=== PATIENT | male | born 1990 | race Caucasian/White ===

== ENCOUNTER → 2021-06-04 14:59 | Outpatient (BNVA) | payer OTHER, SELFPAY | PROVIDERS: PCP Internal Medicine; Visit Provider Psychiatry & Neurology Neurology | DX: G43.909 Migraine, unspecified, not intractable, without status migrainosus (principal); G47.00 Insomnia, unspecified; G89.29 Other chronic pain | CPT/HCPCS: 99212 ==

== ENCOUNTER → 2021-09-26 14:20 | Outpatient (BNVA) | payer OTHER, SELFPAY | PROVIDERS: PCP Internal Medicine; Visit Provider Nurse Practitioner Family | DX: G43.909 Migraine, unspecified, not intractable, without status migrainosus (principal); R51.9 Headache, unspecified; G47.00 Insomnia, unspecified; G89.29 Other chronic pain | CPT/HCPCS: 99212 ==

== ENCOUNTER → 2022-01-28 14:22 | Outpatient (BNVA) | payer OTHER, SELFPAY | PROVIDERS: PCP Internal Medicine; Visit Provider Nurse Practitioner Family | DX: G43.909 Migraine, unspecified, not intractable, without status migrainosus (principal); G47.00 Insomnia, unspecified; Q24.6 Congenital heart block; Z79.899 Other long term (current) drug therapy | CPT/HCPCS: 99212 ==

== ENCOUNTER → 2022-07-09 11:19 | Outpatient (BNVA) | payer OTHER, SELFPAY | PROVIDERS: PCP Internal Medicine; Visit Provider Nurse Practitioner Family | DX: G43.909 Migraine, unspecified, not intractable, without status migrainosus (principal); Q24.6 Congenital heart block; Z95.0 Presence of cardiac pacemaker | CPT/HCPCS: 99212 ==

== ENCOUNTER → 2022-08-14 14:37 | Outpatient (BNVA) | payer OTHER, SELFPAY | PROVIDERS: PCP Internal Medicine; Visit Provider Nurse Practitioner Family | DX: G43.909 Migraine, unspecified, not intractable, without status migrainosus (principal); R51.9 Headache, unspecified; G89.29 Other chronic pain | CPT/HCPCS: 99211 ==

== ENCOUNTER → 2022-10-12 10:58 | Outpatient (BNVA) | payer OTHER, SELFPAY | PROVIDERS: PCP Internal Medicine; Visit Provider Nurse Practitioner Family | DX: G43.909 Migraine, unspecified, not intractable, without status migrainosus (principal); R51.9 Headache, unspecified; M62.838 Other muscle spasm; G89.29 Other chronic pain | CPT/HCPCS: 99212 ==

== ENCOUNTER 2023-02-19 11:05 | Outpatient (AMB) | payer OTHER, SELFPAY ==
--- NOTE | 2023-02-19 11:11 | MHC.OFFVIS ---
Intake Vital Signs 02/19/23 11:33 Height 5 ft 3 in Weight 129 lb 9 oz BMI 22.9 BP 96/72 Blood Pressure Location Rt brachial Position Sitting Pulse 81 Pulse Source Pulse Oximeter Pulse Oximetry (%) 98 Oxygen Delivery Method Room Air Intake Visit Reasons: 4m Follow up Migraine-Confirmed Intake Note: Patient presents for 4 month follow up migraine. patient states no issues or concerns today. Allergies house dust Allergy (Unknown, Verified 02/19/23 11:34) Unknown pollen extracts Allergy (Unknown, Verified 02/19/23 11:34) Unknown cats Allergy (Uncoded 02/19/23 11:34) Sneezing dogs Allergy (Uncoded 02/19/23 11:34) HIVES Medication List - Last Reconciled 02/19/23 by CAROLINA Peñaloza albuterol sulfate 90 mcg/actuation (Ventolin HFA) 2 puffs PO QID PRN atorvastatin 40 mg PO DAILY PRN baclofen 5 - 10 mg (1 - 2 x 5 mg) PO BEDTIME PRN 30 days blood sugar diagnostic (FreeStyle Lite Strips) As directed blood-glucose meter (FreeStyle Lite Meter kit) As directed clindamycin phosphate 1% topical BEDTIME doxycycline hyclate 100 mg PO DAILY erenumab-aooe (Aimovig Autoinjector) 140 mg subcut ONCE 28 days flash glucose scanning reader (FreeStyle Reta 2 [place]) As directed flash glucose sensor (FreeStyle Reta 2 Sensor kit) As directed gabapentin 600 mg (2 x 300 mg) PO BEDTIME hydroxyzine HCl 25 mg PO BEDTIME insulin aspart U-100 (Novolog FlexPen U-100 Insulin aspart) 10 units subcut TID insulin glargine (Lantus Solostar U-100 Insulin) 10 units subcut QPM ketoconazole 2% 1 appl topical BID lisinopril 2.5 mg PO DAILY magnesium oxide 400 mg PO BEDTIME melatonin 3 mg PO BEDTIME PRN pen needle, diabetic (BD [place] 2nd Gen Pen Needle) As directed riboflavin (vitamin B2) 400 mg PO DAILY rimegepant (Nurtec ODT) 75 mg PO Q OTHER DAY PRN 32 days sertraline 50 mg PO DAILY topiramate 1 tab bid x's 2 weeks, then 2 tabs bid orally bedtime; 30 days HPI HPI Comments History of Present Illness Details 32-yr-old male presents for f/u visit. Pt denies any significant interval medical changes. Pt reports he has been having a daily headache, most days not as severe as prior to starting Aimovig. Nurtec was unhelpful. He is not sleeping as well. He works second shift. May drink coffee into the later evening. Has difficulty falling asleep. [facility] Medical History (Updated 02/21/23 @ 19:34 by CAROLINA Peñaloza) Difficulty controlling anger Asthma Anxiety Learning disability Congenital heart block Cardiac defibrillator in place Heart block Pacemaker Hearing loss Diabetes 1.5, managed as type 1 Surgical History Hx of appendectomy History of permanent cardiac pacemaker placement H/O heart surgery Family History Father HTN (hypertension) Heart disease Stroke Mother HTN (hypertension) Diabetes mellitus Social History Household Members: Family Household Members Other:: Mom Alcohol intake: current Alcohol intake frequency: holidays/special occasions only Patient Tobacco Use Status: Never used Tobacco Review of Systems Const All systems reviewed & are unremarkable except as noted in HPI and below Physical Exam Vital Signs: Last Vital Signs Pulse 81 02/19/23 11:33 BP 96/72 02/19/23 11:33 Pulse Ox 98 02/19/23 11:33 Oxygen Delivery Method Room Air 02/19/23 11:33 BMI result Body Mass Index 22.9 Const General: cooperative and no acute distress Orientation/consciousness: patient oriented x3 HEENT Head: Yes normocephalic Resp Effort & Inspection: normal respiratory effort and able to speak in complete sentences Neuro General: patient oriented x3, gait normal and CN's II-XI intact bilaterally Cognition (Neuro): normal cognition Motor exam (neuro): 5/5 motor strength present throughout Psych Appearance: grossly normal Mental Status: mental status grossly normal Speech and movement: Normal speech and movement present Affect: normal affect Attitude: cooperative Thought process: Normal thought process present Thought content: Normal thought content present Assessment & Plan Assessment & Plan (1) Migraine: Code(s): G43.909 - Migraine, unspecified, not intractable, without status migrainosus (2) Sleep difficulties: Code(s): G47.9 - Sleep disorder, unspecified (3) Insomnia: Code(s): G47.00 - Insomnia, unspecified Plan Discussed strategies to optimize sleep- avoid coffee after 5-6pm. Continue Baclofen 5-10mg qhs. Continue Aimovig 140mg sc q 28 days, as pt has had good clinical response from use. Continue Topiramate 25mg, 2 tabs bid- for headache prevention.. Continue Gabapentin 600mg qhs- for sleep and headaches. Continue Riboflavin and Magnesium. May use Excedrin, Ibuprofen, Tylenol sparingly prn. Stop Rimegepant ODT 75mg- was ineffective. Trial Ubrelvy prn. Acute migraine contraindications: triptans d/t h/o congenital CV dz. Migraine prevention contraindications: TCAs- d/t congenital heart block. BBs- d/t dx of asthma and diabetes. f/u in 6 months or sooner prn. Medications: New ubrogepant (Ubrelvy) take at onset of migraine, may repeat in 2hrs (may take w/ Ibuprofen) 50 - 100 mg (0.5 - 1 x 100 mg) PO ONCE 30 days PRN 16 tabs 3RF migraine headache Changed From topiramate 1 tab bid x's 2 weeks, then 2 tabs bid orally bedtime; 30 days 120 tabs 3RF To topiramate 50 mg (2 x 25 mg) PO BID 30 days 120 tabs 6RF From magnesium oxide 400 mg PO BEDTIME To magnesium oxide 400 mg PO BEDTIME 30 days 30 tabs 6RF From riboflavin (vitamin B2) 400 mg PO DAILY To riboflavin (vitamin B2) 400 mg PO DAILY 30 days 30 tabs 6RF Refilled erenumab-aooe (Aimovig Autoinjector) 140 mg subcut ONCE 28 days 28 mL 6RF gabapentin 600 mg (2 x 300 mg) PO BEDTIME 60 caps 6RF Discontinued rimegepant (Nurtec ODT) Discontinued Reason: Doctor's Order 75 mg PO Q OTHER DAY 32 days PRN 16 tabs 6RF migraine headache G43.909 - Migraine, unspecified, not intractable, without status migrainosus Coding Level of Care Code Est Pt Level 4 (39049) Diagnoses Migraine G43.909 Sleep difficulties G47.9 Insomnia G47.00
[2023-02-19 11:33] VITALS: BP 96/72; PULSE 81; O2SAT 98; BMI 22.9
== END 2023-02-19 12:08 | disposition home or self-care (01) ==
PROVIDERS: PCP Internal Medicine; Visit Provider Nurse Practitioner Family
DX: G43.909 Migraine, unspecified, not intractable, without status migrainosus (principal); G47.9 Sleep disorder, unspecified; G47.00 Insomnia, unspecified
CPT/HCPCS: 99214

== ENCOUNTER → 2023-02-19 11:05 | Outpatient (BNVA) | payer OTHER, SELFPAY | PROVIDERS: PCP Internal Medicine; Visit Provider Nurse Practitioner Family | DX: G43.909 Migraine, unspecified, not intractable, without status migrainosus (principal); G47.9 Sleep disorder, unspecified; G47.00 Insomnia, unspecified | CPT/HCPCS: 99212 ==

== ENCOUNTER 2023-08-20 11:05 | Outpatient (AMB) | payer OTHER, SELFPAY ==
--- NOTE | 2023-08-20 11:30 | A.OFFVIS_ITS ---
Vital Signs 08/20/23 11:35 Height 5 ft 3 in Weight 137 lb BMI 24.3 BP 104/70 Blood Pressure Location Lt brachial Position Sitting Pulse 104 H Pulse Source Pulse Oximeter Pulse Oximetry (%) 97 Oxygen Delivery Method Room Air Intake Visit Reasons: 6 mnts f/u for migraines-CONF Intake Note: Patient presents for 6 months F/U. Allergies house dust Allergy (Unknown, Verified 08/20/23 11:34) Unknown pollen extracts Allergy (Unknown, Verified 08/20/23 11:34) Unknown cats Allergy (Uncoded 02/19/23 11:34) Sneezing dogs Allergy (Uncoded 02/19/23 11:34) HIVES HPI Comments Details: 33-yr-old male presents for f/u visit. Pt denies any significant interval medical changes. Pt reports he is having 3-4 headache days per week, on a bad week, he may have 5 attacks. Tends to wait to take his as needed meds at night d/t risk for drowsiness. He has not taken the Aimovig in a few months, as he was not sure if he was able to continue it as the pharmacy did not refill it. He notes that he does have less headaches when he is using it monthly. He did not receive the Ubrelvy yet. He has reduced soda intake- especially none at 8pm. He has increased his milk intake, maybe juice or water. He feels this has helped his BLE neuropathy s/s- so now is sleeping better. [facility] Medical History (Updated 02/21/23 @ 19:34 by CAROLINA Peñaloza) Difficulty controlling anger Asthma Anxiety Learning disability Congenital heart block Cardiac defibrillator in place Heart block Pacemaker Hearing loss Diabetes 1.5, managed as type 1 Surgical History Hx of appendectomy History of permanent cardiac pacemaker placement H/O heart surgery Family History Father HTN (hypertension) Heart disease Stroke Mother HTN (hypertension) Diabetes mellitus Social History Household Members: Family Household Members Other:: Mom Alcohol intake: current Alcohol intake frequency: holidays/special occasions only Patient Tobacco Use Status: Never used Tobacco Physical Exam Vital Signs: Last Vital Signs Pulse 104 H 08/20/23 11:35 BP 104/70 08/20/23 11:35 Pulse Ox 97 08/20/23 11:35 Oxygen Delivery Method Room Air 08/20/23 11:35 BMI result Body Mass Index 24.3 Const General: cooperative and no acute distress Orientation/consciousness: patient oriented x3 Resp Effort & Inspection: normal respiratory effort and able to speak in complete sentences Neuro General: patient oriented x3 Cranial nerves: Yes CN's II-XII intact bilaterally Cognition (Neuro): normal cognition Psych Appearance: grossly normal Mental Status: mental status grossly normal Speech and movement: Normal speech and movement present Affect: normal affect Attitude: cooperative Assessment & Plan Assessment & Plan (1) Migraine: Code(s): G43.909 - Migraine, unspecified, not intractable, without status migrainosus Category: Medical (2) Sleep difficulties: Code(s): G47.9 - Sleep disorder, unspecified Category: Medical Plan Continue strategies to optimize sleep- avoid coffee after 5-6pm. ? Continue Baclofen 5-10mg qhs. Resume Aimovig 140mg sc q 28 days, as pt has had good clinical response from use. Continue Topiramate 25mg, 2 tabs bid- for headache prevention.. Continue Gabapentin 600mg qhs- for sleep and headaches. Continue Riboflavin and Magnesium. May use Excedrin, Ibuprofen, Tylenol sparingly prn. Trial Ubrelvy prn. Previous acute tx trials: Rimegepant ODT 75mg- was ineffective. Acute migraine contraindications: triptans d/t h/o congenital CV dz. Migraine prevention contraindications: TCAs- d/t congenital heart block. BBs- d/t dx of asthma and diabetes. ? f/u in 6 months or sooner prn. Medications: Refilled topiramate 50 mg (2 x 25 mg) PO BID 120 tabs 6RF 30 days riboflavin (vitamin B2) 400 mg PO DAILY 30 tabs 6RF 30 days magnesium oxide 400 mg PO BEDTIME 30 tabs 6RF 30 days ubrogepant (Ubrelvy) take at onset of migraine, may repeat in 2hrs (may take w/ Ibuprofen) 50 - 100 mg (0.5 - 1 x 100 mg) PO ONCE PRN 16 tabs 6RF migraine headache 30 days gabapentin 600 mg (2 x 300 mg) PO BEDTIME 60 caps 6RF
[2023-08-20 11:35] VITALS: BP 104/70; PULSE 104; O2SAT 97; BMI 24.3
== END 2023-08-20 12:17 | disposition home or self-care (01) ==
PROVIDERS: PCP Internal Medicine; Visit Provider Nurse Practitioner Family
DX: G43.909 Migraine, unspecified, not intractable, without status migrainosus (principal); G47.9 Sleep disorder, unspecified
CPT/HCPCS: 99214

== ENCOUNTER → 2023-08-20 11:05 | Outpatient (BNVA) | payer OTHER, SELFPAY | PROVIDERS: PCP Internal Medicine; Visit Provider Nurse Practitioner Family | DX: G43.909 Migraine, unspecified, not intractable, without status migrainosus (principal); G47.9 Sleep disorder, unspecified | CPT/HCPCS: 99212 ==

== ENCOUNTER 2024-05-26 14:48 | Outpatient (AMB) | payer OTHER, SELFPAY ==
--- NOTE | 2024-05-26 15:05 | A.OFFVIS_ITS ---
Vital Signs 05/26/24 15:06 Height 5 ft 3 in Weight 138 lb 2 oz BMI 24.5 BP 120/80 Blood Pressure Location Rt brachial Position Sitting Pulse 95 Pulse Source Pulse Oximeter Pulse Oximetry (%) 98 Oxygen Delivery Method Room Air Intake Visit Reasons: follow up migraines Picture Engraver Required: No Accompanied by: Self / Same As Patient Allergies house dust Allergy (Unknown, Verified 05/26/24 15:11) Unknown pollen extracts Allergy (Unknown, Verified 05/26/24 15:11) Unknown cats Allergy (Uncoded 10/29/23 11:58) Sneezing dogs Allergy (Uncoded 10/29/23 11:58) HIVES Medication List - Last Reconciled 05/26/24 by CAROLINA Peñaloza albuterol sulfate 90 mcg/actuation (Ventolin HFA) 2 puffs PO QID PRN atorvastatin 40 mg PO DAILY PRN baclofen 5 - 10 mg (1 - 2 x 5 mg) PO BEDTIME PRN 30 days blood sugar diagnostic (FreeStyle Lite Strips) As directed blood-glucose meter (FreeStyle Lite Meter kit) As directed clindamycin phosphate 1% topical BEDTIME doxycycline hyclate 100 mg PO DAILY erenumab-aooe (Aimovig Autoinjector) 140 mg subcut ONCE 28 days flash glucose scanning reader (WebThriftStoreStyle Reta 2 [place]) As directed flash glucose sensor (FreeStyle Reta 2 Sensor kit) As directed gabapentin 600 mg (2 x 300 mg) PO BEDTIME hydroxyzine HCl 25 mg PO BEDTIME insulin aspart U-100 (Novolog FlexPen U-100 Insulin aspart) 10 units subcut TID insulin glargine (Lantus Solostar U-100 Insulin) 10 units subcut QPM ketoconazole 2% 1 appl topical BID lisinopril 2.5 mg PO DAILY magnesium oxide 400 mg PO BEDTIME 30 days melatonin 3 mg PO BEDTIME PRN pen needle, diabetic (BD [place] 2nd Gen Pen Needle) As directed riboflavin (vitamin B2) 400 mg PO DAILY 30 days sertraline 50 mg PO DAILY topiramate 50 mg (2 x 25 mg) PO BID 30 days ubrogepant (Ubrelvy) 50 - 100 mg (0.5 - 1 x 100 mg) PO ONCE PRN 30 days Do you need a note to return to daycare/school/sports/work: No HPI Comments Details: 34-yr-old male presents for f/u visit of migraine. Pt denies any significant interval medical changes. Though he recently recovered from a month long URI/generally feeling down. Overall he is feeling better, however, he is having difficulty initiating and maintaining sleep. He uses hydroxyzine, but it does not help him sleep. He has just ordered new pillows, and is hoping this will help. Melatonin in the evening has not helped. He has been told he snores, can easily fall asleep. His mother was recently diagnosed with sleep apnea. Pt reports it has been a while since he had a bad headache, but today he has a headache today. States overall he is not having as many migraines, maybe 3 times days week or less. He has not taken the Aimovig in a while. He states his PCP advise him to stop the gabapentin. He has not started Ubrelvy yet. Pt has been trying to eat better overall- more salads. He is using an electric foot massager, which has been reducing his neuropathy s/s. [facility] Medical History Difficulty controlling anger Asthma Anxiety Learning disability Congenital heart block Cardiac defibrillator in place Heart block Pacemaker Hearing loss Diabetes 1.5, managed as type 1 Surgical History Hx of appendectomy History of permanent cardiac pacemaker placement H/O heart surgery Family History Father HTN (hypertension) Heart disease Stroke Mother HTN (hypertension) Diabetes mellitus Social History Household Members: Family Household Members Other:: Mom Alcohol intake: current Alcohol intake frequency: holidays/special occasions only Patient Tobacco Use Status: Never used Tobacco Physical Exam Vital Signs: Last Vital Signs Pulse 95 05/26/24 15:06 BP 120/80 05/26/24 15:06 Pulse Ox 98 05/26/24 15:06 Oxygen Delivery Method Room Air 05/26/24 15:06 BMI result Body Mass Index 24.5 Const General: cooperative and no acute distress Orientation/consciousness: patient oriented x3 Resp Effort & Inspection: normal respiratory effort and able to speak in complete sentences Neuro General: patient oriented x3 Cranial nerves: Yes CN's II-XII intact bilaterally Cognition (Neuro): normal cognition Psych Appearance: grossly normal Mental Status: mental status grossly normal Speech and movement: Normal speech and movement present Affect: normal affect Attitude: cooperative Assessment & Plan Assessment & Plan (1) Migraine: Code(s): G43.909 - Migraine, unspecified, not intractable, without status migrainosus Category: Medical (2) Sleep difficulties: Code(s): G47.9 - Sleep disorder, unspecified Category: Medical (3) Snoring: Code(s): R06.83 - Snoring Category: Medical (4) Excessive daytime sleepiness: Code(s): G47.19 - Other hypersomnia Category: Medical (5) Sleep difficulties: Code(s): G47.9 - Sleep disorder, unspecified Category: Medical Plan For sleep difficulties: Patient advised to undergo HST to assess for sleep apnea. Reviewed general sleep education principles, including simple strategies to optimize sleep hygiene and sleep quality. List of sleep resources shared w/pt, such as the book Say Jocelyn to Insomnia by Dr Massimo Mahajan. For migraine prevention: Patient has stopped gabapentin. Discontinue Aimovig 140mg sc q 28 days- patient states he does not need this any longer. Continue riboflavin 400 mg q.a.m. Continue magnesium 400 mg q.h.s. Continue Baclofen 5-10mg qhs. Continue Topiramate 25mg, 2 tabs bid- for headache prevention. Migraine prevention contraindications: TCAs- d/t congenital heart block. BBs- d/t dx of asthma and diabetes. For acute migraine treatment: May use Excedrin, Ibuprofen, Tylenol sparingly prn. Trial Ubrogepant (Ubrelvy) 100mg tab, 1/2 - 1 tab (50-100mg) at onset of headach e, may repeat in 2 hours. Max of 2 tabs (200mg) per 24 hours. May adjunct with OTC Tylenol 650mg q 4 hours, Ibuprofen 600mg q 6 hours, or Naproxen 440mg q 12 hrs prn. Potential adverse effects, include but are not limited to fatigue, nausea, dry mouth, constipation Previous acute tx trials: Rimegepant ODT 75mg- ineffective. Acute migraine contraindications: All triptans and DHE d/t h/o congenital CV dz. Will follow-up upon review of above and patient to follow-up in clinic in 6 months or sooner prn. Orders: Orders RT home sleep study Today G47.19 - Other hypersomnia, G47.9 - Sleep disorder, unspecified, R06.83 - Snoring Medications: Changed From ubrogepant (Ubrelvy) take at onset of migraine, may repeat in 2hrs (may take w/ Ibuprofen) 50 - 100 mg (0.5 - 1 x 100 mg) PO ONCE 30 days PRN 16 tabs 6RF migraine headache To ubrogepant (Ubrelvy) take at onset of migraine, may repeat in 2hrs 50 - 100 mg (0.5 - 1 x 100 mg) PO ONCE 30 days PRN 16 tabs 6RF migraine headache MDD 2 tabs Refilled magnesium oxide 400 mg PO BEDTIME 30 days 30 tabs 6RF riboflavin (vitamin B2) 400 mg PO DAILY 30 days 30 tabs 6RF Discontinued gabapentin Discontinued Reason: Doctor's Order 600 mg (2 x 300 mg) PO BEDTIME 60 caps 6RF Coding Level of Care Code Est Pt Level 4 (67512) Diagnoses Migraine G43.909 Sleep difficulties G47.9 Snoring R06.83 Excessive daytime sleepiness G47.19 [place] Sleepiness Scale Questions Sitting and reading: moderate chance of dozing Watching TV: moderate chance of dozing Sitting inactive in a theater, movie etc.: would never doze As a passenger in a car for an hour without break: moderate chance of dozing Lying down in the afternoon when circumstances permit: moderate chance of dozing Sitting and talking to someone: would never doze Sitting quietly after lunch without alcohol: moderate chance of dozing In a car, while stopped for a few minutes in the traffic: would never doze ESS < 10: normal, ESS > 12: pathologic: 10
[2024-05-26 15:06] VITALS: BP 120/80; PULSE 95; O2SAT 98; BMI 24.5
== END 2024-05-26 15:45 | disposition home or self-care (01) ==
LOC: HO.HSMS 14:48
PROVIDERS: PCP Internal Medicine; Visit Provider Nurse Practitioner Family
DX: G43.909 Migraine, unspecified, not intractable, without status migrainosus (principal); G47.9 Sleep disorder, unspecified; R06.83 Snoring; G47.19 Other hypersomnia
CPT/HCPCS: 99214

== ENCOUNTER → 2024-05-26 14:48 | Outpatient (BNVA) | payer OTHER, SELFPAY | PROVIDERS: PCP Internal Medicine; Visit Provider Nurse Practitioner Family | DX: G43.909 Migraine, unspecified, not intractable, without status migrainosus (principal); G47.9 Sleep disorder, unspecified; G47.19 Other hypersomnia; R06.83 Snoring | CPT/HCPCS: 99212 ==

== ENCOUNTER → 2024-07-13 13:56 | Outpatient (REF) | payer OTHER, SELFPAY ==
--- OUTSIDE RECORDS SUMMARY | 2024-07-13 17:05 | XMS_ITS | Encounter Summary ---
Author Organization [facility] Address [address] [place] [id number] Phone Care Team Providers Care Bond Manager Name Role Phone Lopez Justice MD Primary Care Provider [phone] Encounter Details Date Type Department Care Team (Late st Contact Info) Description 04/27/2011 Documentation [facility] [place] [address] [place] [address] Family Medicine, Physician [address] [phone] Social History Tobacco Use Types Packs/Day Years Used Date Smoking Tobacco: Never Assessed Sex and Gender Information Value Date Recorded Sex Assigned at Not on file Legal Sex Male 4:50 PM EDT Gender Identity Not on file Sexual Orientation Not on file documented as of this encounter Plan of Treatment Not on file documented as of this encounter Visit Diagnoses Not on filedocumented in this encounter Care Teams Bond Manager Relationship Specialty Start Date End Date Lopez Justice MD [address] [place] [address] [place] [address] PCP - General 12/18/16 documented as of this encounter
--- OUTSIDE RECORDS SUMMARY | 2024-07-13 17:05 | XMS_ITS | Encounter Summary ---
Author Organization [facility] Address [address] [place] [address] Phone Care Team Providers Care Food Services Coordinator Name Role Phone Lopez Justice MD Primary Care Provider [phone] Encounter Details Date Type Department Care Team (Late st Contact Info) Description 04/01/2010 Documentation [facility] [place] Family Medicine [address] [place] [address] Family Medicine, Physician [address] [phone] Social History Tobacco Use Types Packs/Day Years [...] on filedocumented in this encounter Care Teams Food Services Coordinator Relationship Specialty Start Date End Date Lopez Justice MD [address] [place] [address] [place] [address] PCP - General 12/18/16 documented as of this encounter
--- OUTSIDE RECORDS SUMMARY | 2024-07-13 17:05 | XMS_ITS | Encounter Summary ---
Author Organization [facility] Address [address] [place] [address] Phone Care Team Providers Care Actuarial Trainee Name Role Phone Lopez Justice MD Primary Care Provider [phone] Encounter Details Date Type Department Care Team (Late st Contact Info) Description 09/07/2013 Documentation [facility] [place] Family Medicine [address] [place] [address] Family Medicine, Physician [address] [phone] Social History Tobacco Use Types Packs/Day Years [...] on filedocumented in this encounter Care Teams Actuarial Trainee Relationship Specialty Start Date End Date Lopez Justice MD [address] [place] [address] [place] [address] PCP - General 12/18/16 documented as of this encounter
--- OUTSIDE RECORDS SUMMARY | 2024-07-13 17:05 | XMS_ITS | Encounter Summary ---
Author Organization [facility] Address [address] [place] [address] Phone Care Team Providers Care Help Desk Representative Name Role Phone Lopez Justice MD Primary Care Provider [phone] Encounter Details Date Type Department Care Team (Late st Contact Info) Description 12/24/2016 Conversion Encounter [facility] [place] [address] [place] [address] Social History Tobacco Use Types Packs/Day Years Used Date Smoking Tobacco: Never Comments:Never smoker Sex and Gender Information Value Date Recorded Sex Assigned at Not on file Legal Sex Male 4:50 PM EDT Gender Identity Not on file Sexual Orientation Not on file documented as of this encounter Plan of Treatment Not on file documented as of this encounter Visit Diagnoses Not on filedocumented in this encounter Care Teams Help Desk Representative Relationship Specialty Start Date End Date Lopez Justice MD [address] [place] [id number] PCP - General 12/18/16 documented as of this encounter
--- OUTSIDE RECORDS SUMMARY | 2024-07-13 17:05 | XMS_ITS | Clinical Summary ---
Author Organization [facility] Address [address] [address] Care Team Providers Care Ship Yard Electrical Person Name Role Phone South Saucedo MD Primary Care Provider [phone] Social History Tobacco Use Types Packs/Day Years Used Date Smoking Tobacco: Never Assessed Sex and Gender Information Value Date Recorded Sex Assigned at Not on file Legal Sex Male 11:23 AM EDT Gender Identity Not on file Sexual Orientation Not on file Plan of Treatment Health Maintenance Due Date Last Done Comments Pneumococcal Vaccine: Pediat rics (0 to 5 Years) and At-Risk Patients (6 to 64 Years) (2 of 2 - PCV) 08/22/2022 08/22/2021, 09/20/2014 Diabetes: Hemoglobin A1C 09/22/2022 Diabetes: Ophthalmology Exam 09/22/2022, 01/14/2017, 01/14/2016, Additional history exists Diabetes: Pedal Pulse Checked 09/22/2022 Diabetes: Sensory Foot Exam 09/22/2022 Diabetes: Visual Foot Exam 09/22/2022 Influenza Vaccine (#1) 2024 0, 02/16/2017, 06/16/2013, Additional history exists Hepatitis B Vaccine Completed 1992, 1992, 1992 Insurance [facility] ([id number]) [place]QUEZ [id number] Care Teams Ship Yard Electrical Person Relationship Specialty Start Date End Date South Saucedo MD [facility] [address] [place] [address] PCP - General Internal Medicine 09/22/22
--- OUTSIDE RECORDS SUMMARY | 2024-07-13 17:05 | XMS_ITS | Clinical Summary ---
Author Organization [facility] Address [address] [place] [address] Phone Care Team Providers Care Ceo And Founder Name Role Phone Lopez Justice MD Primary Care Provider [phone] Immunizations Immunization Administration Dates Next Due DTP 04/20/1997, 4,1992,08/30,1992 H1N1 04/02/2009 HPV, Quadrivalent 06/16/2013 Hep A, ped/adol 06/16/2013 Hep B, ped/adol 1992,1992,1992 Hib (PRP-T) 08/26/1993, 3,1992,06/05 Influenza Split 01/29/2011,05/13/2010 Influenza, injectable, quadr ivalent, preservative free 06/16/2013 Influenza, injectable, trivalent 008,04/05/2007,03/23/2005,04/14,02/25/1999,04/09/1998 MMR 04/20/1997,08/26/1993 Meningococcal Conj (Menactra) MCV4P 04/05/2007 OPV 04/20/1997, 4,1992,06/05 Tdap 05/13/2010,04/29/2005 Family History Relation Name Status Comments Father Alive Father: *Sudden /OK under 55, Maternal Grandmother Materna l grandmother: Hyperlipidemia Mother Mother: Asthma, Hyperlipidemia, Diabetes mellitus Other Family history of Cancer, Family history of Migraines, Family history of Hyperlipidemia, No family history of Obesity, Family history of Asthma Social History Tobacco Use Types Packs/Day Years Used Date Smoking Tobacco: Never Comments:Never smoker Sex and Gender Information Value Date Recorded Sex Assigned at Not on file Legal Sex Male 4:50 PM EDT Gender Identity Not on file Sexual Orientation Not on file Last Filed Vital Signs Vital Sign Reading Time Taken Comments Blood Pressure 116/80 07/25/2013 12:00 AM EDT Pulse - - Temperature 36.6 ??C (97.9 ??F) 07/25/2013 12:00 AM E DT Respiratory Rate - - Oxygen Saturation - - Inhaled Oxygen Concentration - - Weight 54.2 kg (119 lb 8 oz) 07/25/2013 12:00 AM EDT Height 160 cm (5' 3 ) 06/16/2013 12:00 AM EST Body Mass Index 21.17 06/16/2013 12:00 AM EST Plan of Treatment Health Maintenance Due Date Last Done Comments Varicella Vaccines (1 of 2 - 13+ 2-dose series) 2005 HPV Vaccines (2 - Male 3-dose series) 07/14/2013 06/16/2013 DTaP,Tdap,and Td Vaccines (8 - Td or Tdap) 05/13/2020 05/13/2010, 04/29/2005, 04/20/1997, Additional history exists Influenza Vaccines (#1) 2023 06/16/19 14, 01/29/2011, 05/13/2010, Additional history exists COVID-19 Vaccine ( season) 2024 Hepatitis B Vaccines Completed 1992, 1992, 1992 HIB Vaccines Completed 08/26/1993, 10/09, 1992, Additional history exists IPV Vaccines Completed 04/20/1997, 03/10, 1992, Additional history exists MMR Vaccines Completed 04/20/1997, 08/26/1993 Meningococcal Vaccine Aged Out 04/05/2007 No rachel danyelle eligible based on patient's age to complete this topic Hepatitis A Vaccines Aged Out 06/16/2013 No long er eligible based on patient's age to complete this topic Men B Vaccine Aged Out No longer elig ible based on patient's age to complete this topic Pneumococcal Vaccine Aged Out No long er eligible based on patient's age to complete this topic Care Teams Ceo And Founder Relationship Specialty Start Date End Date Lopez Justice MD [address] [place] [address] MONA Neri [id number] PCP - General 12/18/16
== END ==
LOC: HO.SL 13:56
PROVIDERS: Visit Provider Nurse Practitioner Family
DX: R06.83 Snoring (principal); G47.19 Other hypersomnia; G47.9 Sleep disorder, unspecified
CPT/HCPCS: 95806

== ENCOUNTER → 2024-07-13 14:10 | Outpatient (BNV) | payer OTHER, SELFPAY | PROVIDERS: Visit Provider Psychiatry & Neurology Neurology | DX: R06.83 Snoring (principal); G47.9 Sleep disorder, unspecified | CPT/HCPCS: 95806 ==

== ENCOUNTER 2024-11-24 08:40 | Outpatient (AMB) | payer OTHER, SELFPAY ==
--- OUTSIDE RECORDS SUMMARY | 2024-11-24 08:43 | XMS_ITS | Encounter Summary ---
Author Organization [facility] Address [address] [place] [address] Phone Care Team Providers Care Shaker Out Name Role Phone Lopez Justice MD Primary Care Provider Alex rivera Encounter Details Date Type Department Care Team (Late st Contact Info) Description 04/27/2011 Documentation EM Family Medicine [address] [place] [address] Family Medicine, Physician [address] [place] [address] Social History Tobacco Use Types Packs/Day Years [...] on filedocumented in this encounter Care Teams Shaker Out Relationship Specialty Start Date End Date Lopez Justice MD PCP - General 12/18/16 documented as of this encounter
--- OUTSIDE RECORDS SUMMARY | 2024-11-24 08:43 | XMS_ITS | Clinical Summary ---
Author Organization [facility] Facility Address [address] [place] [address] Care Team Providers Care Wire Dropper Name Role Phone South Saucedo MD Primary Care Provider [phone] Social History Tobacco Use Types Packs/Day Years Used Date Smoking Tobacco: Never Assessed Sex and Gender Information Value Date Recorded Sex Assigned at Not on file Legal Sex Male 11:23 AM EDT Gender Identity Not on file Sexual Orientation Not on file Plan of Treatment Health Maintenance Due Date Last Done Comments Pneumococcal Vaccine: Peds ( 0 to 5 Years) and At-Risk Patients (6 to 49 Years) (2 of 2 - PCV) 08/22/2022 08/22/2021, 09/20/2014 Diabetes: Hemoglobin A1C 09/22/2022 Diabetes: Ophthalmology Exam 09/22/2022, 01/14/2017, 01/14/2016, Additional history exists Diabetes: Pedal Pulse Checked 09/22/2022 Diabetes: Sensory Foot Exam 09/22/2022 Diabetes: Visual Foot Exam 09/22/2022 Influenza Vaccine (#1) 2025 0, 02/16/2017, 06/16/2013, Additional history exists Hepatitis B Vaccine Completed 1992, 1992, 1992 Insurance [facility] ([id number]) EDELMIRA VELASQUEZ [id number] Care Teams Wire Dropper Relationship Specialty Start Date End Date South Saucedo MD [employer] [address] [place] [address] PCP - General Internal Medicine 09/22/22
[2024-11-24 08:49] VITALS: BP 140/90; PULSE 83; O2SAT 98; BMI 23.9
--- NOTE | 2024-11-24 08:49 | A.OFFVIS_ITS ---
Vital Signs 11/24/24 08:49 Height 5 ft 3 in Weight 135 lb BMI 23.9 BP 140/90 H Blood Pressure Location Rt brachial Position Sitting Pulse 83 Pulse Source Pulse Oximeter Pulse Oximetry (%) 98 Oxygen Delivery Method Room Air Intake Visit Reasons: 6 mo follow up [employer] Required: No Accompanied by: Self / Same As Patient Allergies house dust Allergy (Unknown, Verified 11/24/24 08:49) Unknown pollen extracts Allergy (Unknown, Verified 11/24/24 08:49) Unknown cats Allergy (Uncoded 10/29/23 11:58) Sneezing dogs Allergy (Uncoded 10/29/23 11:58) HIVES Medication List - Last Reconciled 11/24/24 by CAROLINA Peñaloza albuterol sulfate 90 mcg/actuation (Ventolin HFA) 2 puffs PO QID PRN atorvastatin 40 mg PO DAILY PRN baclofen 5 - 10 mg (1 - 2 x 5 mg) PO BEDTIME PRN 30 days blood sugar diagnostic (FreeStyle Lite Strips) As directed blood-glucose meter (FreeStyle Lite Meter kit) As directed clindamycin phosphate 1% topical BEDTIME doxycycline hyclate 100 mg PO DAILY erenumab-aooe (Aimovig Autoinjector) 140 mg subcut ONCE 28 days flash glucose scanning reader (GemShareStyle Reta 2 [place]) As directed flash glucose sensor (FreeStyle Reta 2 Sensor kit) As directed hydroxyzine HCl 25 mg PO BEDTIME insulin aspart U-100 (Novolog FlexPen U-100 Insulin aspart) 10 units subcut TID ketoconazole 2% 1 appl topical BID lisinopril 2.5 mg PO DAILY magnesium oxide 400 mg PO BEDTIME 30 days melatonin 3 mg PO BEDTIME PRN pen needle, diabetic (BD [place] 2nd Gen Pen Needle) As directed riboflavin (vitamin B2) 400 mg PO DAILY 30 days sertraline 50 mg PO DAILY topiramate 50 mg (2 x 25 mg) PO BID 30 days ubrogepant (Ubrelvy) 50 - 100 mg (0.5 - 1 x 100 mg) PO ONCE PRN 30 days MDD 2 tabs HPI Comments Details: 34-yr-old male presents for f/u visit of migraine and sleep difficulties. Pt denies any significant interval medical changes. 07/13/2024 home sleep study did not show any evidence for obstructive sleep apnea * AHI 0.3 per hour, O2 jeremie 83% with SpO2 under 88% times 0.6 minutes. After completion of the home sleep study, we had reviewed results with patient, and offered patient to undergo follow-up in-lab sleep study to further assess his sleep, however patient stated he wanted to think about it. Today, patient reports he continues to have difficulty initiating and maintaining sleep. He denies restlessness during the day or evening. However, he endorses restlessness and neuropathy symptoms, described as numbness and punching pain/discomfort in his legs. You may have to get up and walk around to relieve this. Can have restless sleep and nocturnal leg cramps. He states he can feel the ground when walking He has never had a nerve conduction study, he states he was told he has neuropat hy, in his symptoms are similar to his mother who has diabetic neuropathy. He does have an electric foot massager, which has been reducing his neuropathy s/s. He states his blood sugars are overall stable-though sometimes higher or lower. His last hemoglobin A1c 8.7% in September, and previous 10.4% in January 2024. He has a history of mild anemia, and a history of markedly elevated CK during his 2022 hospitalization for appendicitis. His most recent TSH was within normal limits. He uses hydroxyzine, but it does not help him sleep. In the past, gabapentin was not helpful. States overall he is not having as many migraines, maybe 3 times days week or less. He states his migraine medication helps, though there are days where he would rather lay down, but he is able to push through and go to work. He is not interested in restarting Aimovig at this point. Pt has been trying to eat better overall- more salads. He is using an [facility] Medical History Difficulty controlling anger Asthma Anxiety Learning disability Congenital heart block Cardiac defibrillator in place Heart block Pacemaker Hearing loss Diabetes 1.5, managed as type 1 Surgical History Hx of appendectomy History of permanent cardiac pacemaker placement H/O heart surgery Family History Father HTN (hypertension) Heart disease Stroke Mother HTN (hypertension) Diabetes mellitus Social History Household Members: Family Household Members Other:: Mom Alcohol intake: current Alcohol intake frequency: holidays/special occasions only Patient Tobacco Use Status: Never used Tobacco Physical Exam Vital Signs: Last Vital Signs Pulse 83 11/24/24 08:49 BP 140/90 H 11/24/24 08:49 Pulse Ox 98 11/24/24 08:49 Oxygen Delivery Method Room Air 11/24/24 08:49 BMI result Body Mass Index 23.9 Const General: cooperative and no acute distress Orientation/consciousness: patient oriented x3 Resp Effort & Inspection: normal respiratory effort and able to speak in complete sentences Neuro Other: Bilateral patellar DTRs dulled Bilateral lower extremity light touch sensation intact. General: patient oriented x3 Cranial nerves: Yes CN's II-XII intact bilaterally Cognition (Neuro): normal cognition Motor exam (neuro): 5/5 motor strength present throughout Psych Appearance: grossly normal Mental Status: mental status grossly normal Speech and movement: Normal speech and movement present Affect: normal affect Attitude: cooperative Assessment & Plan Assessment & Plan (1) Sleep difficulties: Code(s): G47.9 - Sleep disorder, unspecified Category: Medical (2) Snoring: Code(s): R06.83 - Snoring Category: Medical (3) Excessive daytime sleepiness: Code(s): G47.19 - Other hypersomnia Category: Medical (4) Migraine: Code(s): G43.909 - Migraine, unspecified, not intractable, without status migrainosus Category: Medical Qualifiers: Migraine type: migraine (< 15 days per month) without aura Status migrainosus presence: without status migrainosus Intractability: not intractable Qualified Code(s): G43.009 - Migraine without aura, not intractable, without status migrainosus Plan For sleep difficulties: Reviewed HST results, no evidence of obstructive sleep apnea or nocturnal hypoxemia. Patient advised to undergo labs to assess for common etiologies of neuropathy and restlessness symptoms. Trial alpha lipoic acid 600 mg daily Previously provided general sleep education principles, including simple strategies to optimize sleep hygiene and sleep quality. List of sleep resources shared w/pt, such as the book Say Jocelyn to Insomnia by Dr Massimo Mahajan. Future considerations: Pregabalin For migraine prevention: Continue riboflavin 400 mg q.a.m. Continue magnesium 400 mg q.h.s. Continue Baclofen 5-10mg qhs. Continue Topiramate 25mg, 2 tabs bid- for headache prevention. Migraine prevention contraindications: TCAs- d/t congenital heart block. BBs- d/t dx of asthma and diabetes. Previous trials: Patient has stopped Aimovig as he felt he no longer needed it. Gabapentin was stopped ineffective. For acute migraine treatment: May use Excedrin, Ibuprofen, Tylenol sparingly prn. Ubrogepant (Ubrelvy) 100mg tab, 1/2 - 1 tab (50-100mg) at onset of headache, may repeat in 2 hours. Max of 2 tabs (200mg) per 24 hours. May adjunct with OTC Tylenol 650mg q 4 hours, Ibuprofen 600mg q 6 hours, or Naproxen 440mg q 12 hrs prn. Previous acute tx trials: Rimegepant ODT 75mg- ineffective. Acute migraine contraindications: All triptans and DHE d/t h/o congenital CV dz. Will follow-up upon review of above and patient to follow-up in clinic in 6 months or sooner prn. Orders: Orders Magnesium Today D64.9 - Anemia, unspecified, E13.9 - Other specified diabetes mellitus without complications, Q24.6 - Congenital heart block, R20.2 - Paresthesia of skin, R74.8 - Abnormal levels of other serum enzymes Complete Blood Count Auto Diff Today D64.9 - Anemia, unspecified, E13.9 - Other specified diabetes mellitus without complications, Q24.6 - Congenital heart block, R20.2 - Paresthesia of skin, R74.8 - Abnormal levels of other serum enzymes Vitamin B12 and Folate Today D64.9 - Anemia, unspecified, E13.9 - Other specified diabetes mellitus without complications, Q24.6 - Congenital heart block, R20.2 - Paresthesia of skin, R74.8 - Abnormal levels of other serum enzymes C Reactive Protein Today D64.9 - Anemia, unspecified, E13.9 - Other specified diabetes mellitus without complications, Q24.6 - Congenital heart block, R20.2 - Paresthesia of skin, R74.8 - Abnormal levels of other serum enzymes Vitamin B6 Today D64.9 - Anemia, unspecified, E13.9 - Other specified diabetes mellitus without complications, Q24.6 - Congenital heart block, R20.2 - Paresthesia of skin, R74.8 - Abnormal levels of other serum enzymes Vitamin B1 Today D64.9 - Anemia, unspecified, E13.9 - Other specified diabetes mellitus without complications, Q24.6 - Congenital heart block, R20.2 - Paresthesia of skin, R74.8 - Abnormal levels of other serum enzymes Rheumatoid Factor Today D64.9 - Anemia, unspecified, E13.9 - Other specified diabetes mellitus without complications, Q24.6 - Congenital heart block, R20.2 - Paresthesia of skin, R74.8 - Abnormal levels of other serum enzymes Comprehensive Met. Panel Today D64.9 - Anemia, unspecified, E13.9 - Other specified diabetes mellitus without complications, Q24.6 - Congenital heart block, R20.2 - Paresthesia of skin, R74.8 - Abnormal levels of other serum enzymes Ferritin Today D64.9 - Anemia, unspecified, E13.9 - Other specified diabetes mellitus without complications, Q24.6 - Congenital heart block, R20.2 - Paresthesia of skin, R74.8 - Abnormal levels of other serum enzymes Methylmalonic Acid Today D64.9 - Anemia, unspecified, E13.9 - Other specified diabetes mellitus without complications, Q24.6 - Congenital heart block, R20.2 - Paresthesia of skin, R74.8 - Abnormal levels of other serum enzymes IRON PROFILE Today D64.9 - Anemia, unspecified, E13.9 - Other specified diabetes mellitus without complications, Q24.6 - Congenital heart block, R20.2 - Paresthesia of skin, R74.8 - Abnormal levels of other serum enzymes Erythrocyte Sedimentation Rate Today D64.9 - Anemia, unspecified, E13.9 - Other specified diabetes mellitus without complications, Q24.6 - Congenital heart block, R20.2 - Paresthesia of skin, R74.8 - Abnormal levels of other serum enzymes Creatine Kinase Total Today D64.9 - Anemia, unspecified, E13.9 - Other specified diabetes mellitus without complications, Q24.6 - Congenital heart block, R20.2 - Paresthesia of skin, R74.8 - Abnormal levels of other serum enzymes Vitamin D 25-OH (D2 and D3) Today D64.9 - Anemia, unspecified, E13.9 - Other specified diabetes mellitus without complications, Q24.6 - Congenital heart block, R20.2 - Paresthesia of skin, R74.8 - Abnormal levels of other serum enzymes AMBER Reflex Titer and Pattern Today D64.9 - Anemia, unspecified, E13.9 - Other specified diabetes mellitus without complications, Q24.6 - Congenital heart block, R20.2 - Paresthesia of skin, R74.8 - Abnormal levels of other serum enzymes Medications: New alpha lipoic acid 600 mg PO DAILY 30 caps 6RF 30 days Coding Level of Care Code Est Pt Level 4 (97833) Diagnoses Sleep difficulties G47.9 Snoring R06.83 Excessive daytime sleepiness G47.19 Migraine without aura and without status migrainosus, not intractable G43.009 Migraine type: migraine (< 15 days per month) without aura Status migrainosus presence: without status migrainosus Intractability: not intractable
== END 2024-11-24 09:26 | disposition home or self-care (01) ==
LOC: HO.HSMS 08:41
PROVIDERS: PCP Internal Medicine; Visit Provider Nurse Practitioner Family
DX: G47.9 Sleep disorder, unspecified (principal); R06.83 Snoring; G47.19 Other hypersomnia; G43.009 Migraine without aura, not intractable, without status migrainosus
CPT/HCPCS: 99214

== ENCOUNTER 2024-11-24 08:40 | Outpatient (REF) | payer OTHER, SELFPAY ==
[2024-11-24 12:57] LABS: MANUAL DIFF FLAG NO
[2024-11-24 13:03] LABS: Hematocrit 40.1 % (42.0-52.0); Hemoglobin 13.9 g/dl (14.0-18.0); Imm Gran Abs Auto 0.04 X10*3/uL (0.00-0.03); Imm Gran Pct Auto 0.6 % (0.0-0.4); Lymphocytes Absolute Auto 1.8 X10*3/uL (1.2-4.9); Mean Corpuscular HGB Conc 34.7 g/dl (31.0-36.0); Mean Corpuscular Hemoglobin 29.7 pg (27.0-33.0); Mean Corpuscular Volume 85.7 fL (80.0-98.0); NRBC Abs Auto 0.000 X10*3/uL (0.0-0.012); NRBC Pct Auto 0.0 /100WBC (0.0-0.2); Platelet Count 274 X10*3/uL (160-400); Red Blood Count 4.68 X10*6/uL (4.60-5.80); White Blood Count 7.3 X10*3/uL (4.8-10.8)
[2024-11-24 13:35] LABS: Alanine Aminotransferase 58 U/L (0-40); Albumin Level 4.8 g/dL (3.5-5.0); Alkaline Phosphatase 79 U/L (39-117); Anion Gap 14 (12-20); Aspartate Amino Transferase 45 U/L (5-37); Blood Urea Nitrogen 24 mg/dL (9-16); Calcium 9.9 mg/dL (8.4-10.2); Carbon Dioxide 23 mmol/L (22-29); Chloride 107 mmol/L (96-108); Estimated Glomerular Filt Rate > 60; Iron 68 mcg/dL (45-160); Magnesium 1.8 mg/dL (1.6-2.6); Percent Iron Saturation 24 % (15-50); Potassium 4.5 mmol/L (3.3-5.1); Sodium 139 mmol/L (135-145); Total Iron Binding Capacity 289 mcg/dL (228-428); Total Protein 8.2 g/dL (6.5-8.0); Unsaturated Iron Binding 221 ug/dL
[2024-11-24 13:54] LABS: Folate 5.4 ng/mL (> or = 4.0); Vitamin B12 539 pg/mL (200-900)
[2024-11-24 14:02] LABS: Ferritin 92 ng/mL (20-250)
[2024-11-28 15:48] LABS: Vitamin D 25-OH, D2 <4 ng/mL; Vitamin D 25-OH, D3 32 ng/mL; Vitamin D 25-OH, Total 32 ng/mL (30-100)
[2024-11-29 10:08] LABS: Anti Nuclear Antibody Screen NEGATIVE (NEGATIVE)
== END 2024-11-24 08:41 | disposition home or self-care (01) ==
LOC: HO.HMGCLDS 08:40
PROVIDERS: PCP Internal Medicine; Visit Provider Nurse Practitioner Family
DX: R20.2 Paresthesia of skin (principal); E13.9 Other specified diabetes mellitus without complications; Q24.6 Congenital heart block; R74.8 Abnormal levels of other serum enzymes; D64.9 Anemia, unspecified; Z13.9 Encounter for screening, unspecified; R06.83 Snoring; G47.19 Other hypersomnia; G43.009 Migraine without aura, not intractable, without status migrainosus
CPT/HCPCS: 36415; 80053; 82306; 82550; 82607; 82728; 82746; 83540; 83735; 83921; 84207; 84425; 85025; 85652; 86038; 86140; 86431; 99212